=== PATIENT | male | born 1950 | race Caucasian/White ===

== ENCOUNTER → 2021-07-08 | Outpatient (CLI) | payer OTHER ==
[~2021-07-08] MED LIST: CIPR250 PO; PROM25 PO; TAMS.4ER PO
== END ==
LOC: LAB 11:01 → LAB SHORT 11:01
DX: D48.5 Neoplasm of uncertain behavior of skin (principal); D04.30 Carcinoma in situ of skin of unspecified part of face; L82.1 Other seborrheic keratosis
CPT/HCPCS: 88305

== ENCOUNTER → 2021-07-29 | Outpatient (CLI) | payer MEDICARE | LOC: LAB SHORT 14:55 → LAB 14:55 | DX: D04.39 Carcinoma in situ of skin of other parts of face (principal) | CPT/HCPCS: 88305 ==

== ENCOUNTER 2024-06-28 18:07 | Inpatient (IN) | payer MEDICARE ==
[~2024-06-28] VITALS: Ht 180.3 cm; Wt 68.0 kg
[2024-06-28] MEDS ORDERED: NS 1,000 ML IV SCH ×2 (19:00→23:00)
[2024-06-28] MEDS ORDERED: CefTRIAXone Sodium 2,000 MG in NS 100 ML IV ONE (19:05)
[2024-06-28 19:15] LABS: BASOPHILS ABSOLUTE AUTO 0.03 K/mm3 (0.00-0.23); BASOPHILS PERCENT AUTO 0 % (0-2); EOSINOPHILS PERCENT AUTO 0 % (0-6); Hematocrit 43.4 % (37.0-53.0); Hemoglobin 14.8 g/dL (13.5-17.5); IMMATURE GRAN ABSOLUTE AUTO 0.05 K/mm3 (0.00-0.10); IMMATURE GRAN PERCENT AUTO 0 % (0-1); LYMPHOCYTES ABSOLUTE AUTO 0.59 K/mm3 (0.84-5.20); LYMPHOCYTES PERCENT AUTO 5 % (21-46); MONOCYTES ABSOLUTE AUTO 0.99 K/mm3 (0.16-1.47); MONOCYTES PERCENT AUTO 8 % (4-13); Mean Corpuscular HGB 31.1 pg (26.0-34.0); Mean Corpuscular HGB Conc 34.1 g/dL (31.5-36.5); Mean Corpuscular Volume 91 fL (80-100); Mean Platelet Volume 11.4 fL (9.1-12.4); NEUTROPHILS PERCENT AUTO 86 % (41-73); Platelet Count 165 K/mm3 (150-400); RDW Coefficient Variation 13.4 % (11.7-14.2); RDW Standard Deviation 45.3 fL (35.1-46.3); Red Blood Cell Count 4.76 M/mm3 (4.30-5.90); White Blood Cell Count 12.06 K/mm3 (4.00-11.30)
[2024-06-28] MEDS ORDERED: Vancomycin HCL 1,000 MG in NS 250 ML IV ONE (19:25)
[2024-06-28 19:32] LABS: Source, Urine Clean Catch
[2024-06-28 19:37] LABS: Appearance, Urine Hazy (Clear); Bilirubin, Urine Neg (Neg); Blood, Urine 5+ (Neg); Color, Urine Amber (P-Yellow); Glucose Qualitative, Urine Neg (Neg); Ketones, Urine Neg (Neg); Leukocyte Esterase, Urine Neg (Neg); Nitrite, Urine Neg (Neg); Protein, Urine 3+ (Neg); Urobilinogen, Urine NORM (Normal)
[2024-06-28 19:38] LABS: Albumin, Blood 2.9 g/dL (3.4-5.0); Albumin/Globulin Ratio 0.6 (0.8-1.8); Bilirubin, Total 1.1 mg/dL (0.1-1.0); Bun/Creatinine Ratio 25.7 (12.0-20.0); Calcium, Blood 9.6 mg/dL (8.5-10.1); Creatinine, Blood 2.06 mg/dL (0.60-1.20); Globulin, Blood 5.2 g/dL (2.2-4.0); Potassium, Blood 4.4 mmol/L (3.5-5.5); Total Protein, Blood 8.1 g/dL (6.4-8.2)
[2024-06-28 19:43] LABS: Ethanol (Alcohol), Blood, Med <3 mg/dL; Free Thyroxine 0.93 ng/dL (0.70-1.60); Magnesium, Blood 2.7 mg/dL (1.6-2.4); Phosphorus, Blood 2.4 mg/dL (2.5-4.9)
[2024-06-28 19:57] LABS: Bacteria Many /hpf; Squamous Epithelial Cells Few /hpf (Few)
[2024-06-28 20:02] LABS: U Amphetamine Screen Not Detected; U Barbituate Screen Not Detected; U Benzodiazapine Screen Not Detected; U Buprenorphine Screen Not Detected; U Cannabinoids Screen Not Detected; U Cocaine Screen Not Detected; U Methadone Screen Not Detected; U Methamphetamine Screen Not Detected; U Opiates Screen Not Detected; U Oxycodone Screen Not Detected; U Phencyclidine Screen Not Detected
[2024-06-28 20:07] LABS: Influenza A, PCR NEGATIVE (NEGATIVE); Influenza B, PCR NEGATIVE (NEGATIVE); Resp Syncytial Virus, PCR NEGATIVE (NEGATIVE); SARS-Cov-2 (COVID-19) PCR, MMC NEGATIVE (NEGATIVE)
[2024-06-28] MEDS ORDERED: Acetaminophen 650 MG Supp PR ONE (20:10)
[2024-06-28 20:59] LABS: Appearance, CSF Clear (Clear); Color, CSF No Color (No Color); WBC Count, CSF 1 /mm3 (0-5)
[2024-06-28 21:00] LABS: RBC Count, CSF 101 /mm3 (0-0)
[2024-06-28 21:13] LABS: Glucose, CSF 88 mg/dL (40-70)
[2024-06-28] MEDS ORDERED: Acetaminophen 325 MG TABLET PO PRN (22:15)
[2024-06-28] MEDS ORDERED: Acetaminophen 650 MG Supp PR PRN (22:15)
[2024-06-28] MEDS ORDERED: MIRT15 PO (22:47)
[2024-06-28] MEDS ORDERED: MEMANTINE HCL PO (22:47)
[2024-06-28] MEDS ORDERED: DONEPEZIL HCL10 MG PO (22:48)
[2024-06-28] MEDS ORDERED: Azithromycin 500 MG in NS 250 ML IV SCH (22:48)
[2024-06-28] MEDS ORDERED: Lactobacil 2-S.Thermo-Bifido 1 1 Cap PO SCH (23:00)
[2024-06-28 23:06] LABS: Cryptococcus Neoformans/Gattii Not Detected (NOT DETECT); Enterovirus Not Detected (NOT DETECT); Escherichia Coli K1 Not Detected (NOT DETECT); Haemophilus Influenza Not Detected (NOT DETECT); Herpes Simplex Virus 1 Not Detected (NOT DETECT); Herpes Simplex Virus 2 Not Detected (NOT DETECT); Human Herpesvirus 6 Not Detected (NOT DETECT); Human Parechovirus Not Detected (NOT DETECT); Listeria Monocytogenes Not Detected (NOT DETECT); Neisseria Meningitidis Not Detected (NOT DETECT); Streptococcus Agalactiae Not Detected (NOT DETECT); Streptococcus Pneumoniae Not Detected (NOT DETECT); Varicella Zoster Virus Not Detected (NOT DETECT)
[2024-06-28 23:38] VITALS: BP 122/65
[2024-06-29] MEDS ORDERED: NS 1,000 ML IV SCH (01:00)
--- NOTE | 2024-06-29 01:30 | NUR ---
HIGH SENSITIVITY TROPONIN CRITICAL RESULT OF 146AT 0130 ON 06/29/24. MD TAVERA NOTIFIED. TROPONIN IN THE ED WAS 136. DR TAVERA PLACED ORDER FOR TELEMETRY MONITORING. NO SIGNS OF DISTRESS FROM PATIENT.
[2024-06-29 02:53] VITALS: BP 147/67
[2024-06-29 05:12] LABS: BASOPHILS ABSOLUTE AUTO 0.04 K/mm3 (0.00-0.23); BASOPHILS PERCENT AUTO 0 % (0-2); EOSINOPHILS PERCENT AUTO 0 % (0-6); Hematocrit 40.9 % (37.0-53.0); Hemoglobin 13.5 g/dL (13.5-17.5); IMMATURE GRAN ABSOLUTE AUTO 0.06 K/mm3 (0.00-0.10); IMMATURE GRAN PERCENT AUTO 1 % (0-1); LYMPHOCYTES ABSOLUTE AUTO 0.54 K/mm3 (0.84-5.20); LYMPHOCYTES PERCENT AUTO 5 % (21-46); MONOCYTES ABSOLUTE AUTO 0.78 K/mm3 (0.16-1.47); MONOCYTES PERCENT AUTO 8 % (4-13); Mean Corpuscular HGB 30.9 pg (26.0-34.0); Mean Corpuscular Volume 94 fL (80-100); Mean Platelet Volume 11.4 fL (9.1-12.4); NEUTROPHILS ABSOLUTE AUTO 8.83 K/mm3 (1.96-9.15); NEUTROPHILS PERCENT AUTO 86 % (41-73); Platelet Count 135 K/mm3 (150-400); RDW Coefficient Variation 13.8 % (11.7-14.2); RDW Standard Deviation 47.3 fL (35.1-46.3); Red Blood Cell Count 4.37 M/mm3 (4.30-5.90); White Blood Cell Count 10.25 K/mm3 (4.00-11.30)
[2024-06-29 05:31] LABS: Albumin, Blood 2.5 g/dL (3.4-5.0); Albumin/Globulin Ratio 0.5 (0.8-1.8); Bilirubin, Total 0.8 mg/dL (0.1-1.0); Bun/Creatinine Ratio 29.5 (12.0-20.0); Calcium, Blood 8.6 mg/dL (8.5-10.1); Creatinine, Blood 1.76 mg/dL (0.60-1.20); Globulin, Blood 4.7 g/dL (2.2-4.0); Potassium, Blood 3.9 mmol/L (3.5-5.5); Total Protein, Blood 7.2 g/dL (6.4-8.2)
[2024-06-29 07:08] VITALS: BP 118/73
[2024-06-29] MEDS ORDERED: Tamsulosin HCl 0.4 MG Cap PO SCH (09:00)
[2024-06-29] MEDS ORDERED: Memantine HCL 5 MG Tab PO SCH (09:00)
[2024-06-29] MEDS ORDERED: Enoxaparin 40 MG/0.4 ML SYR SC SCH (09:00)
--- NOTE | 2024-06-29 10:32 | NUR ---
CALLED DR RAY, NOTIFEID OF PT'S LABS INCLUDING NA 153, CL 121 AND GFR/CR. INFORMED HIM THAT RN STOPPED IVF AT 0700, STATES HE WILL EVAL PT AND WRITE SOME NEW ORDERS
[2024-06-29] MEDS ORDERED: D5W-1/2NS KCl 10mEq 1,000 ML IV SCH (11:45)
[2024-06-29 14:48] VITALS: BP 142/80
[2024-06-29 16:19] LABS: BASOPHILS ABSOLUTE AUTO 0.03 K/mm3 (0.00-0.23); BASOPHILS PERCENT AUTO 0 % (0-2); EOSINOPHILS PERCENT AUTO 0 % (0-6); Hematocrit 40.1 % (37.0-53.0); Hemoglobin 13.4 g/dL (13.5-17.5); IMMATURE GRAN ABSOLUTE AUTO 0.04 K/mm3 (0.00-0.10); IMMATURE GRAN PERCENT AUTO 1 % (0-1); LYMPHOCYTES ABSOLUTE AUTO 0.56 K/mm3 (0.84-5.20); LYMPHOCYTES PERCENT AUTO 7 % (21-46); MONOCYTES ABSOLUTE AUTO 0.56 K/mm3 (0.16-1.47); MONOCYTES PERCENT AUTO 7 % (4-13); Mean Corpuscular HGB 31.4 pg (26.0-34.0); Mean Corpuscular HGB Conc 33.4 g/dL (31.5-36.5); Mean Corpuscular Volume 94 fL (80-100); Mean Platelet Volume 11.1 fL (9.1-12.4); NEUTROPHILS ABSOLUTE AUTO 7.38 K/mm3 (1.96-9.15); NEUTROPHILS PERCENT AUTO 86 % (41-73); Platelet Count 144 K/mm3 (150-400); Red Blood Cell Count 4.27 M/mm3 (4.30-5.90); White Blood Cell Count 8.57 K/mm3 (4.00-11.30)
[2024-06-29 17:04] LABS: Bun/Creatinine Ratio 30.2 (12.0-20.0); Calcium, Blood 8.8 mg/dL (8.5-10.1); Creatinine, Blood 1.59 mg/dL (0.60-1.20); Potassium, Blood 3.7 mmol/L (3.5-5.5)
[2024-06-29 19:36] VITALS: BP 137/72
--- NOTE | 2024-06-29 20:50 | NUR ---
SUMMARY- PT A/O TO SELF. BEDREST CURRENTLY, TURNED Q2, INCONT CARE. PT VERY CONFUSED. FIDGITY AND JUMPY, SPEEKS NONSENSICAL MOST OF THE TIME. WAS ABLE TO SAY HIS NAME. RECOGNIZED HIS FAMILY WHEN THEY WERE IN TO VISIT. SPEECH WILL RUDY EVAL UNTIL TOMORROW WHEN PT HOPEFULLY BETTER ABLE TO FOLLOW DIRECTION. CHANGED IVF AFTER LABS RECEIVED WITH ELEVATED NA/CL. PT ON ROOM AIR. TELE NSR. REPORTED TO BREONNA GARDNER YANG
[2024-06-29] MEDS ORDERED: CefTRIAXone Sodium 2,000 MG in NS 100 ML IV SCH (21:00)
[2024-06-29] MEDS ORDERED: Mirtazapine 15 MG SoluTab PO SCH (21:00)
[2024-06-29] MEDS ORDERED: Donepezil HCl 5 MG Tab PO SCH (21:00)
[2024-06-29] MEDS ORDERED: CefTRIAXone Sodium 1,000 MG in NS 100 ML IV SCH (21:00)
[2024-06-30 02:50] VITALS: BP 122/85
[2024-06-30 05:30] LABS: BASOPHILS ABSOLUTE AUTO 0.02 K/mm3 (0.00-0.23); BASOPHILS PERCENT AUTO 0 % (0-2); EOSINOPHILS PERCENT AUTO 0 % (0-6); Hematocrit 42.5 % (37.0-53.0); Hemoglobin 14.1 g/dL (13.5-17.5); IMMATURE GRAN ABSOLUTE AUTO 0.06 K/mm3 (0.00-0.10); IMMATURE GRAN PERCENT AUTO 1 % (0-1); LYMPHOCYTES PERCENT AUTO 8 % (21-46); MONOCYTES ABSOLUTE AUTO 0.58 K/mm3 (0.16-1.47); MONOCYTES PERCENT AUTO 8 % (4-13); Mean Corpuscular HGB 31.3 pg (26.0-34.0); Mean Corpuscular HGB Conc 33.2 g/dL (31.5-36.5); Mean Corpuscular Volume 94 fL (80-100); Mean Platelet Volume 11.5 fL (9.1-12.4); NEUTROPHILS ABSOLUTE AUTO 6.41 K/mm3 (1.96-9.15); NEUTROPHILS PERCENT AUTO 84 % (41-73); Platelet Count 152 K/mm3 (150-400); RDW Standard Deviation 48.8 fL (35.1-46.3); White Blood Cell Count 7.67 K/mm3 (4.00-11.30)
[2024-06-30 06:05] LABS: Albumin, Blood 2.3 g/dL (3.4-5.0); Albumin/Globulin Ratio 0.5 (0.8-1.8); Bilirubin, Total 0.7 mg/dL (0.1-1.0); Bun/Creatinine Ratio 26.6 (12.0-20.0); Calcium, Blood 9.4 mg/dL (8.5-10.1); Creatinine, Blood 1.58 mg/dL (0.60-1.20); Globulin, Blood 4.9 g/dL (2.2-4.0); Potassium, Blood 3.8 mmol/L (3.5-5.5); Total Protein, Blood 7.2 g/dL (6.4-8.2)
[2024-06-30] MEDS ORDERED: D5W-1/2NS KCl 10mEq 1,000 ML IV SCH (06:35)
[2024-06-30 07:01] VITALS: BP 133/85
[2024-06-30] MEDS ORDERED: LevoFLOXacin 500MG/D5W 100ML 100 ML IV SCH (14:00)
[2024-06-30 14:40] VITALS: BP 127/65
--- NOTE | 2024-06-30 16:41 | NUR ---
SHIFT SUMMARY: PT AOX1 AND TREMORS AT REST. PLEASANT MOOD AND NONIMPUSLIVE, VSS. ACCORDING TO FAMILY, PT CURRENT MENTAL STATUS IS FAR FROM BASELINE AND CONCERNING. DR CHANGED ANTIBIOTICS AND CONTINUING FLUIDS. BEDDING CHANGED AND PT ATE WHOLE BREAKFAST AND LUNCH PER NUCLEAR WEAPONS MECHANICAL SPECIALIST. PLAN DISCUSSED WITH AND FAMILY. BED IN LOWEST POSITION, 3 BEDRAILS UP, AND CALL LIGHT IN REACH. CONTINUING CARE.
--- NOTE | 2024-06-30 17:56 | NUR ---
THIS REPAIRER KILN CAR HAS REVIEWED AND AGREES WITH ALL NOTES AND ASSESSMENTS.
--- NOTE | 2024-06-30 18:27 | NUR ---
STRAIGHT CATH ATTEMPTED AND WAS NOT SUCCESSFUL. PT TOLERATED WELL PROSTATE FEELS VERY LARGE. UA NOT COLLECTED.
[2024-06-30 19:47] VITALS: BP 150/74
[2024-06-30] MEDS ORDERED: Dextrose 5% 1,000 ML IV SCH (22:00)
[2024-06-30] MEDS ORDERED: Potassium Phosphate Dibasic 20 MM IV SCH (22:00)
[2024-06-30] MEDS ORDERED: Potassium Phosphate Dibasic 20 MM in Dextrose 5% 500 ML IV STA (22:06)
[2024-07-01] MEDS ORDERED: [UNRECOGNIZED DRUG - MIXTURE] IV SCH ×2 (02:30→07:50)
[2024-07-01 02:55] VITALS: BP 132/75
[2024-07-01 07:17] LABS: BASOPHILS ABSOLUTE AUTO 0.01 K/mm3 (0.00-0.23); BASOPHILS PERCENT AUTO 0 % (0-2); EOSINOPHILS ABSOLUTE AUTO 0.02 K/mm3 (0.00-0.68); EOSINOPHILS PERCENT AUTO 0 % (0-6); Hematocrit 39.2 % (37.0-53.0); IMMATURE GRAN ABSOLUTE AUTO 0.04 K/mm3 (0.00-0.10); IMMATURE GRAN PERCENT AUTO 1 % (0-1); LYMPHOCYTES PERCENT AUTO 12 % (21-46); MONOCYTES ABSOLUTE AUTO 0.55 K/mm3 (0.16-1.47); MONOCYTES PERCENT AUTO 8 % (4-13); Mean Corpuscular HGB 31.5 pg (26.0-34.0); Mean Corpuscular HGB Conc 33.2 g/dL (31.5-36.5); Mean Corpuscular Volume 95 fL (80-100); Mean Platelet Volume 11.8 fL (9.1-12.4); NEUTROPHILS ABSOLUTE AUTO 5.29 K/mm3 (1.96-9.15); NEUTROPHILS PERCENT AUTO 79 % (41-73); Platelet Count 152 K/mm3 (150-400); RDW Coefficient Variation 14.3 % (11.7-14.2); RDW Standard Deviation 50.1 fL (35.1-46.3); Red Blood Cell Count 4.13 M/mm3 (4.30-5.90); White Blood Cell Count 6.71 K/mm3 (4.00-11.30)
[2024-07-01 07:27] LABS: Albumin, Blood 1.9 g/dL (3.4-5.0); Albumin/Globulin Ratio 0.4 (0.8-1.8); Bilirubin, Total 0.7 mg/dL (0.1-1.0); Bun/Creatinine Ratio 20.4 (12.0-20.0); Calcium, Blood 8.9 mg/dL (8.5-10.1); Creatinine, Blood 1.57 mg/dL (0.60-1.20); Globulin, Blood 4.6 g/dL (2.2-4.0); Potassium, Blood 3.7 mmol/L (3.5-5.5); Total Protein, Blood 6.5 g/dL (6.4-8.2)
[2024-07-01 07:31] VITALS: BP 139/76
[2024-07-01] MEDS ORDERED: D5W-1/2NS KCl 10mEq 1,000 ML IV SCH (10:05)
[2024-07-01 15:24] LABS: Bun/Creatinine Ratio 21.2 (12.0-20.0); Calcium, Blood 8.5 mg/dL (8.5-10.1); Creatinine, Blood 1.6 mg/dL (0.60-1.20); Potassium, Blood 3.9 mmol/L (3.5-5.5)
[2024-07-01 16:01] VITALS: BP 98/66
--- NOTE | 2024-07-01 18:39 | NUR ---
SHIFT SUMMARY: PT AOX1-0 WAS ABLE TO GIVE US HIS NAME DURING MORNING MEDS. MALE PUREWICK ATTACHED TO CATCH URINE SAMPLE AND LEFT ON. DRY AND INTACT OF NOTE. D5W FINISHED AND POTASIUM HUNG UP @150ML/HR PER ORDER. FAMILY VISITING REGULARLY, PT WAKING UP INTERMITTENTLY. TELE DISCONTINUED. PT AT BEDSIDE HELPING FEED. BED IN LOWEST POSITION, BEDRAILS UP, AND CALL LIGHT IN REACH. CONTINUING CARE.
--- NOTE | 2024-07-01 19:04 | NUR ---
THIS AFFIRMATIVE ACTION SPECIALIST HAS REVIEWED AND AGREES WITH ALL NOTES AND ASSESSMENTS BY KENDRA ROTHMAN.
[2024-07-01 20:13] VITALS: BP 132/64
[2024-07-01 21:57] LABS: Bun/Creatinine Ratio 22.4 (12.0-20.0); Calcium, Blood 8.6 mg/dL (8.5-10.1); Creatinine, Blood 1.56 mg/dL (0.60-1.20)
[2024-07-02 03:05] VITALS: BP 145/81
[2024-07-02 03:17] LABS: BASOPHILS ABSOLUTE AUTO 0.01 K/mm3 (0.00-0.23); BASOPHILS PERCENT AUTO 0 % (0-2); EOSINOPHILS ABSOLUTE AUTO 0.07 K/mm3 (0.00-0.68); EOSINOPHILS PERCENT AUTO 1 % (0-6); Hematocrit 38.5 % (37.0-53.0); Hemoglobin 12.7 g/dL (13.5-17.5); IMMATURE GRAN ABSOLUTE AUTO 0.03 K/mm3 (0.00-0.10); IMMATURE GRAN PERCENT AUTO 1 % (0-1); LYMPHOCYTES PERCENT AUTO 15 % (21-46); MONOCYTES ABSOLUTE AUTO 0.51 K/mm3 (0.16-1.47); MONOCYTES PERCENT AUTO 8 % (4-13); Mean Corpuscular HGB 31.4 pg (26.0-34.0); Mean Corpuscular Volume 95 fL (80-100); Mean Platelet Volume 11.1 fL (9.1-12.4); NEUTROPHILS ABSOLUTE AUTO 4.99 K/mm3 (1.96-9.15); NEUTROPHILS PERCENT AUTO 75 % (41-73); Platelet Count 147 K/mm3 (150-400); RDW Coefficient Variation 14.4 % (11.7-14.2); RDW Standard Deviation 50.6 fL (35.1-46.3); Red Blood Cell Count 4.05 M/mm3 (4.30-5.90); White Blood Cell Count 6.61 K/mm3 (4.00-11.30)
[2024-07-02 03:39] LABS: Albumin, Blood 1.8 g/dL (3.4-5.0); Albumin/Globulin Ratio 0.4 (0.8-1.8); Bilirubin, Total 0.5 mg/dL (0.1-1.0); Bun/Creatinine Ratio 21.4 (12.0-20.0); Creatinine, Blood 1.54 mg/dL (0.60-1.20); Globulin, Blood 4.5 g/dL (2.2-4.0); Potassium, Blood 3.9 mmol/L (3.5-5.5); Total Protein, Blood 6.3 g/dL (6.4-8.2)
[2024-07-02 07:39] VITALS: BP 147/80
[2024-07-02 15:19] VITALS: BP 119/63
--- NOTE | 2024-07-02 16:05 | NUR ---
VSS except for high Temp of 100.9, notifed, tylenol given per order, Confused only oriented to self, shows no signs of pain, shows no signs of SOB, ambulates with 2x assist and walker, on RA. Lungs diminished, heart regular, bowel sounds normative, 1-1 feed on purred diet, spoons of water, incontient of urine. Pt cannot make needs known, call dockery in hand, bed in lowest position.
[2024-07-02] MEDS ORDERED: Dextrose 5% 1,000 ML IV SCH ×2 (17:05→23:20)
[2024-07-02 17:43] LABS: Albumin, Blood 1.5 g/dL (3.4-5.0); Anion Gap 9 mmol/L (3-11); Blood Urea Nitrogen 31 mg/dL (8-24); Bun/Creatinine Ratio 22.3 (12.0-20.0); CO2, Blood 22 mmol/L (21-32); Calcium, Blood 8.3 mg/dL (8.5-10.1); Chloride, Blood 126 mmol/L (98-108); Creatinine, Blood 1.39 mg/dL (0.60-1.20); Glomerular Filtration Rate 53 (60-); Glucose, Blood 151 mg/dL (70-99); Phosphorus, Blood 2.7 mg/dL (2.5-4.9); Potassium, Blood 3.9 mmol/L (3.5-5.5); Sodium, Blood 153 mmol/L (136-145)
[2024-07-02 19:40] VITALS: BP 120/57
[2024-07-03] MEDS ORDERED: Dextrose 5% 1,000 ML IV SCH (02:15)
[2024-07-03 03:35] VITALS: BP 149/80
[2024-07-03 05:08] LABS: Hematocrit 36.1 % (37.0-53.0); Hemoglobin 11.8 g/dL (13.5-17.5)
[2024-07-03 05:35] LABS: Albumin, Blood 1.6 g/dL (3.4-5.0); Anion Gap 12 mmol/L (3-11); Blood Urea Nitrogen 28 mg/dL (8-24); Bun/Creatinine Ratio 23.1 (12.0-20.0); CO2, Blood 21 mmol/L (21-32); Calcium, Blood 8.4 mg/dL (8.5-10.1); Chloride, Blood 122 mmol/L (98-108); Creatinine, Blood 1.21 mg/dL (0.60-1.20); Glomerular Filtration Rate 63 (60-); Glucose, Blood 142 mg/dL (70-99); Magnesium, Blood 1.9 mg/dL (1.6-2.4); Phosphorus, Blood 2.3 mg/dL (2.5-4.9); Potassium, Blood 3.6 mmol/L (3.5-5.5); Sodium, Blood 151 mmol/L (136-145)
[2024-07-03] MEDS ORDERED: Potassium Phosphate Dibasic 10 MM in Dextrose 5% 250 ML IV ONE (06:15)
[2024-07-03 07:47] VITALS: BP 142/84
[2024-07-03] MEDS ORDERED: Diazepam 5 MG Tab PO PRN (14:40)
[2024-07-03 15:20] VITALS: BP 123/61
--- NOTE | 2024-07-03 19:19 | NUR ---
PATIENT TRANSPORTED TO IMAGING FOR MRI. PATIENT TRANSFERED TO [facility] FROM HOSPITAL BED WITH SLIDER SHEET AND 2P ASSIST.
--- NOTE | 2024-07-03 19:51 | NUR ---
PATIENT RETURNS TO ROOM VIA GURNEY AND 1P ASSIST FROM IMAGING. PATIENT TRANSFERED FROM [facility] TO HOSPITAL BED WITH SLIDER SHEET AND 3P ASSIST. PER REPORT IT WAS DIFFICULT TO OBTAIN IMAGING DURING MRI D/T PATIENT MOVING. PATIENT POSITIONED IN BED, NEEDS ADDRESSED, PATIENT LEFT IN A SAFE POSITION WITH CALL LIGHT IN REACH.
--- NOTE | 2024-07-03 20:04 | NUR ---
SHIFT SUMMARY: PT ORIENTED TO NONE THIS AM. PT UNABLE TO EVEN STATE NAME AND/OR . PT BECAME MORE CLEAR THE DAY PROGRESSED. PT ABLE TO HOLD UTENSILS AND FEED SELF PRIOR TO END OF SHIFT. SPOKE WITH DR. QUILES SEVERAL TIMES THIS SHIFT PROVIDING UPDATES ON SODIUM LEVELS. REPEAT NA TO BE COMPLETED @ [address] QUILES BY 2200. NA PRIOR TO SHIFT CHANGE OF 144. DEXTROSE INFUSING @ 150/HR. ELASTIC ATTACHER ZIGZAG ARRIVED AT END OF SHIFT FOR PT SCAN. PT/OT WORKING WITH PT AND ABLE TO GET PT IN CHAIR WITH ONE PERSON ASSIST. CALL LIGHT IN REACH. BED IN LOWEST POSITION.
[2024-07-03 20:57] VITALS: BP 129/82
[2024-07-04 04:12] VITALS: BP 121/66
[2024-07-04 05:17] LABS: Hematocrit 36.1 % (37.0-53.0); Hemoglobin 11.6 g/dL (13.5-17.5)
[2024-07-04 05:33] LABS: Albumin, Blood 1.6 g/dL (3.4-5.0); Anion Gap 12 mmol/L (3-11); Blood Urea Nitrogen 26 mg/dL (8-24); Bun/Creatinine Ratio 23.6 (12.0-20.0); CO2, Blood 22 mmol/L (21-32); Calcium, Blood 7.8 mg/dL (8.5-10.1); Chloride, Blood 113 mmol/L (98-108); Glomerular Filtration Rate 70 (60-); Glucose, Blood 125 mg/dL (70-99); Magnesium, Blood 1.7 mg/dL (1.6-2.4); Potassium, Blood 3.5 mmol/L (3.5-5.5); Sodium, Blood 143 mmol/L (136-145)
--- NOTE | 2024-07-04 05:55 | NUR ---
SHIFT SUMMARY. PATIENT IS ALERT TO SELF. PATIENTS SPEECH IS MUMBLED AND PATIENT APPEARS TO HAVE WORD SALAD AT TIME. PATIENT OUT TO MRI THIS SHIFT. PATIENT ACTIVE THIS SHIFT MOVING IN BED, FIDGETING WITH BLANKETS, ATTENDS, AND GOWN. PATIENT SLEPT OFF AND ON T/O SHIFT. PATIENT INFUSING DEXTROSE AT 150MLS/HR. SPOKE WITH DR. QUILES X3 THIS SHIFT INFORMING OF SODIUM UPDATES AND LAB RESULTS THIS AM-PATIENT TO HAVE A ONE TIME DOSE OF K-PHOS IV-SEE ORDERS. DR. QUILES ORDERED FOR A STAT SODIUM AT 1000 AND TO CALL WITH RESULTS PRIOR TO 1100. PATIENTS BED IS LOCKED IN THE LOWEST POSITION WITH BED ALARM ENGAGED FOR PATIENT SAFETY. CALL LIGHT IN REACH.
[2024-07-04] MEDS ORDERED: Potassium Phosphate Dibasic 20 MM in Dextrose 5% 500 ML IV ONE (06:15)
[2024-07-04 07:27] VITALS: BP 145/65
[2024-07-04 16:01] VITALS: BP 104/48
--- NOTE | 2024-07-04 17:56 | NUR ---
PT A&OX1 SELF ONLY, CAN FOLLOW BASIC COMMANDS. INCONTINENT, ATTEND AND BRIEF IN PLACE WITH GOOD URINE OUTPUT. VSS, EXCEPT FOR TMAX OF 102.3 MD NOTIFIED, TYLENOL GIVEN FOLLOW UP TEMP 100.9. PT ABLE TO WALK WITH PT AND SIT UP IN CHAIR FOR LUNCH. WORKED WITH SPEECH AND DIET ADVANCED TO REGULAR DIET, TOLERATED WELL WITH FEEDING. DEXTROSE 5% RUNNING CONTINUOUSLY AT 150ML/HR, SODIUM AT 1014- 139. CALL LIGHT IN REACH, BED ALARM ENGAGED, AND BED LOCKED IN LOWEST POSITION, IN ROOM MOST OF THE DAY ASSISTS WITH ADLS SUPPORTIVE OF CARE.
[2024-07-04 19:02] VITALS: BP 119/55
[2024-07-04 20:05] LABS: Albumin, Blood 1.6 g/dL (3.4-5.0); Anion Gap 10 mmol/L (3-11); Blood Urea Nitrogen 27 mg/dL (8-24); Bun/Creatinine Ratio 20.9 (12.0-20.0); CO2, Blood 25 mmol/L (21-32); Chloride, Blood 109 mmol/L (98-108); Creatinine, Blood 1.29 mg/dL (0.60-1.20); Glomerular Filtration Rate 58 (60-); Glucose, Blood 133 mg/dL (70-99); Phosphorus, Blood 2.6 mg/dL (2.5-4.9); Potassium, Blood 3.5 mmol/L (3.5-5.5); Sodium, Blood 140 mmol/L (136-145)
--- NOTE | 2024-07-04 20:15 | NUR ---
DR. QUILES CALLED INTO HOSPITAL IN REGARDS TO PATIENT. DR. QUILES ADDED K-PHOS, STRICT I&O'S, DEXTROSE INFUSION, AND URINE OSMO. IN THE MORNING-SEE ORDERS.
[2024-07-04] MEDS ORDERED: Potassium Phosphate Dibasic 10 MM in Dextrose 5% 250 ML IV ONE (20:20)
[2024-07-04] MEDS ORDERED: Dextrose 5% 1,000 ML IV SCH (20:25)
--- NOTE | 2024-07-05 00:20 | NUR ---
PATIENT IS STRICT I&O'S-CONDOM CATHETER PLACED TO GET ACCURATE OUTPUT-PATIENT PULLED OFF X2. PATIENT FIDGETING AND TRYING TO GET OUT OF BED X3 AT THIS TIME. PATIENT IS PLEASANT AND CONFUSED. PATIENT PROVIDED WITH A FIDGET APRON.
[2024-07-05 02:07] VITALS: BP 142/62
--- NOTE | 2024-07-05 03:45 | NUR ---
SHIFT SUMMARY: PT ALERT WITH INCREASED CONFUSION. HES BEEN ANXIOUS AND IRRITABLE THIS SHIFT WITH ATTEMPTS OF TRYING TO GET OUT OF BED. WE ATTEMPTED TO PUT A CONDOM CATH ON HIM BUT HE KEPT REMOVING IT. LUNG SOUNDS AT START OF SHIFT WERE CLEAR BUT HE HAS CRACKLES AT THIS TIME. tEMP AT 0215 WAS 101.7. TYLENOL WAS GIVEN AND TEMP WENT DOWN TO 98.9. REMAINS ON STRICT I&O. CONTINUES ON D5 AT 125. CONTINUES WITH A NONPRODUCTIVE COUGH. PT RESTING AT THIS TIME WITH CALL LIGHT IN PLACE BED ALARM ON AND SIDERAILS UP.
[2024-07-05 04:16] LABS: BASOPHILS ABSOLUTE AUTO 0.01 K/mm3 (0.00-0.23); BASOPHILS PERCENT AUTO 0 % (0-2); EOSINOPHILS ABSOLUTE AUTO 0.03 K/mm3 (0.00-0.68); EOSINOPHILS PERCENT AUTO 0 % (0-6); Hematocrit 33.4 % (37.0-53.0); Hemoglobin 10.9 g/dL (13.5-17.5); IMMATURE GRAN ABSOLUTE AUTO 0.11 K/mm3 (0.00-0.10); IMMATURE GRAN PERCENT AUTO 1 % (0-1); LYMPHOCYTES ABSOLUTE AUTO 0.84 K/mm3 (0.84-5.20); LYMPHOCYTES PERCENT AUTO 11 % (21-46); MONOCYTES PERCENT AUTO 5 % (4-13); Mean Corpuscular HGB 30.4 pg (26.0-34.0); Mean Corpuscular HGB Conc 32.6 g/dL (31.5-36.5); Mean Corpuscular Volume 93 fL (80-100); Mean Platelet Volume 11.4 fL (9.1-12.4); NEUTROPHILS ABSOLUTE AUTO 6.58 K/mm3 (1.96-9.15); NEUTROPHILS PERCENT AUTO 83 % (41-73); Platelet Count 182 K/mm3 (150-400); RDW Coefficient Variation 13.2 % (11.7-14.2); RDW Standard Deviation 45.5 fL (35.1-46.3); Red Blood Cell Count 3.58 M/mm3 (4.30-5.90); White Blood Cell Count 7.97 K/mm3 (4.00-11.30)
[2024-07-05 04:43] LABS: Albumin, Blood 1.5 g/dL (3.4-5.0); Anion Gap 11 mmol/L (3-11); Blood Urea Nitrogen 28 mg/dL (8-24); Bun/Creatinine Ratio 24.6 (12.0-20.0); CO2, Blood 22 mmol/L (21-32); Calcium, Blood 7.9 mg/dL (8.5-10.1); Chloride, Blood 110 mmol/L (98-108); Creatinine, Blood 1.14 mg/dL (0.60-1.20); Glomerular Filtration Rate 67 (60-); Glucose, Blood 139 mg/dL (70-99); Phosphorus, Blood 2.6 mg/dL (2.5-4.9); Potassium, Blood 3.3 mmol/L (3.5-5.5); Sodium, Blood 140 mmol/L (136-145)
[2024-07-05 04:45] LABS: Source, Urine Condom Cath
--- NOTE | 2024-07-05 04:52 | NUR ---
PT WITH INCREASED CONFUSION AND FEVER. NOTICED ON DRS PROGRESS NOTE YESTERDAY THAT HE WANTED URINE STUDIES. CALLED DR. SHARIF AND INFORMED HIM AND HE GAVE A ORDER TO OBTAIN A UA. UA WAS OBTAINED AND SENT TO THE LAB.
[2024-07-05 05:04] LABS: Appearance, Urine Clear (Clear); Bilirubin, Urine Neg (Neg); Blood, Urine 4+ (Neg); Color, Urine Yellow (P-Yellow); Glucose Qualitative, Urine Neg (Neg); Ketones, Urine Neg (Neg); Leukocyte Esterase, Urine Neg (Neg); Nitrite, Urine Neg (Neg); Protein, Urine 2+ (Neg); Specific Gravity, Urine 1.015 (1.003-1.022); Urobilinogen, Urine NORM (Normal)
[2024-07-05 05:19] LABS: Amorphous Light (0-Heavy); Bacteria Few /hpf; Granular Casts 0-2 /lpf (0); Red Blood Cells, Urine 0-2 /hpf (0-2); Squamous Epithelial Cells Few /hpf (Few); White Blood Cells, Urine 0-2 /hpf (0-5)
[2024-07-05] MEDS ORDERED: Dextrose 5% 1,000 ML IV SCH (05:25)
[2024-07-05] MEDS ORDERED: Potassium Chloride 10 Meq Tablet SA PO ONE (05:25)
[2024-07-05] MEDS ORDERED: Potassium Phosphate Dibasic 10 MM in Dextrose 5% 250 ML IV ONE (06:00)
[2024-07-05 07:26] VITALS: BP 140/70
[2024-07-05] MEDS ORDERED: Piperacillin/Tazobactam Sod 3.375 GM in NS 100 ML IV SCH (12:00)
[2024-07-05] MEDS ORDERED: NS 250 ML IV PRN (12:20)
[2024-07-05 16:09] VITALS: BP 123/56
[2024-07-05 19:24] VITALS: BP 127/68
[2024-07-05 22:52] LABS: Potassium, Blood 3.5 mmol/L (3.5-5.5)
--- NOTE | 2024-07-05 23:42 | NUR ---
NEW T-ORDER FROM DR QUILES ENTERED TO [employer], SEE EMAR: CHANGE D5 INFUSION TO 50MLS/HR. NO ADDITIONAL NEW ORDERS AT THIS TIME.
--- NOTE | 2024-07-06 03:44 | NUR ---
SHIFT SUMMARY PT IS A&O X2-3, WORDSALAD. @HS BY THE BEDSIDE, PROVIDING VALUABLE INFORMATION ABOUT PT'S PREVIOUS BASELINE AND ADL'S. IV DOSE ADJUSTED AFTER STAT Na AND K+ LABS COMPLETED, INFUSING ORDERED D5@50MLS/HR PER 'S T-ORDER (SEE PREVIOUS NOTE.) IV ABX INFUSED ORDERED. MEDICATIONS CRUSHED WITH APPLESAUCE/PUDDING. PT SWALLOWING WELL WITH PUDDING. PT INCONTINENT OF URINE, CONDOM CATH IN PLACE, AND INCONTINENT OF BM X1 DURING THIS SHIFT. PT DENIES PAIN AND DISCOMFORT (FACE SCALE 0). NO ACUTE CHANGES/EVENTS/DISTRESS NOTED/REPORTED DURING THIS SHIFT. BED AT THE LOWEST POSITION, CALL LIGHT W/I REACH, FREQUENT CHECKS BY THE BEDSIDE. BED ALARM FOR SAFETY. PT HAS BEEN RESTING WELL T/O THE NIGHT HRS.
[2024-07-06 04:18] VITALS: BP 131/60
[2024-07-06 05:41] LABS: Hemoglobin 11.1 g/dL (13.5-17.5)
[2024-07-06 06:17] LABS: Albumin, Blood 1.5 g/dL (3.4-5.0); Anion Gap 9 mmol/L (3-11); Blood Urea Nitrogen 26 mg/dL (8-24); CO2, Blood 23 mmol/L (21-32); Chloride, Blood 109 mmol/L (98-108); Creatinine, Blood 1.24 mg/dL (0.60-1.20); Glomerular Filtration Rate 61 (60-); Glucose, Blood 111 mg/dL (70-99); Magnesium, Blood 2.1 mg/dL (1.6-2.4); Phosphorus, Blood 2.3 mg/dL (2.5-4.9); Potassium, Blood 3.4 mmol/L (3.5-5.5); Sodium, Blood 138 mmol/L (136-145)
[2024-07-06] MEDS ORDERED: Potassium Phosphate Dibasic 20 MM in Dextrose 5% 500 ML IV STA (06:44)
[2024-07-06 07:04] VITALS: BP 132/73
[2024-07-06 12:48] LABS: Phosphorus, Blood 3.2 mg/dL (2.5-4.9); Potassium, Blood 3.6 mmol/L (3.5-5.5)
--- NOTE | 2024-07-06 13:23 | NUR ---
Patient here, unhappy patient in room q 1hour without visit. I let her know I watched her get here and utilized that to run to another patient emergency but had previously been in and hes been actively cared for. In fact both therapies had just finished right before her arrival as well. I described all we'd done so far and what he'd eaten. Mark. also working very hard to keep him at his best.
--- NOTE | 2024-07-06 17:01 | NUR ---
SHIFT SUMMARY PT PLEASANT AND COOPERATIVE WITH CARE THOUGH AXO X0-1. SLEEPING EASILY THROUGHOUT THE DAY. UP TO THE RECLINER FOR THE SHIFT. PT MOVED FROM 311 TO 324, PT'S SPOUSE NOTIFIED OF THE MOVE. IV IN LEFT WRIST BECAME PAINFUL TO PT AND WAS NOT PATENT SO WAS PULLED. PT TO HAVE CT ONCE IV LINE REESTABLISHED. BED IN LOW POSITION, CALL LIGHT WITHIN REACH. VSS. CHAIR ALARM AND BED ALARM ON. PT'S SPOUSE STATED THAT SHE "EXPECTS THE DOCTOR TO CALL DAILY WITH UPDATES." DR PRADO NOTIFIED.
[2024-07-06 17:02] VITALS: BP 135/70
[2024-07-06 19:03] VITALS: BP 98/59
--- NOTE | 2024-07-06 20:49 | NUR ---
Patient fell out of bed on his knees, was able to get up himself back onto bed. No injuries were found, bed alarm was on bed.
--- NOTE | 2024-07-06 22:28 | NUR ---
SPOKE WITH DELFINO HUDSON PT'S FALL AT 2034, ATTEMPTED TO CALL EARLIER BUT HE WAS IN AN EMERGENCY AND UNABLE TO TALK. INFORMED R/T TO DETAILS OF WHAT HAPPENED DURING FALL, PT IS NOW IN A CARMITA FOR PT'S OWN SAFETY. PRIMARY RN AWARE.
[2024-07-06 22:40] LABS: Potassium, Blood 3.7 mmol/L (3.5-5.5)
--- NOTE | 2024-07-06 23:11 | NUR ---
NURSE NOTE CONTACTED DR QUILES ABOUT LAB RESULTS. NO NEW ORDERS AT THIS TIME.
[2024-07-07 03:27] VITALS: BP 128/83
--- NOTE | 2024-07-07 05:56 | NUR ---
SHIFT SUMMARY PATIENT IS ALERT AND ORIENTED TO SELF ONLY. PATIENT HAD CT SCAN THIS EVENING. PATIENT SLID OUT OF BED WITH NO INJURIES AND WITH BED ALARM ON. PATIENT HAS HAD A CARMITA VEST PLACED ON FOR SAFETY. PATIENT HAS BEEN SLEEPING MOST OF SHIFT AFTER INCIDENT. PATIENT HAS HAD NO COMPLAINTS OF PAIN, NAUSEA, SOB OR VOMITTING THIS SHIFT. VITAL SIGNS REVIEWED. DR QUILES WAS NOTIFIED OF LAB RESULTS IN PM.
[2024-07-07 06:34] LABS: BASOPHILS ABSOLUTE AUTO 0.02 K/mm3 (0.00-0.23); BASOPHILS PERCENT AUTO 0 % (0-2); EOSINOPHILS ABSOLUTE AUTO 0.04 K/mm3 (0.00-0.68); EOSINOPHILS PERCENT AUTO 1 % (0-6); Hematocrit 31.5 % (37.0-53.0); Hemoglobin 10.8 g/dL (13.5-17.5); IMMATURE GRAN ABSOLUTE AUTO 0.07 K/mm3 (0.00-0.10); IMMATURE GRAN PERCENT AUTO 1 % (0-1); LYMPHOCYTES ABSOLUTE AUTO 1.38 K/mm3 (0.84-5.20); LYMPHOCYTES PERCENT AUTO 18 % (21-46); MONOCYTES ABSOLUTE AUTO 0.53 K/mm3 (0.16-1.47); MONOCYTES PERCENT AUTO 7 % (4-13); Mean Corpuscular HGB 31.5 pg (26.0-34.0); Mean Corpuscular HGB Conc 34.3 g/dL (31.5-36.5); Mean Corpuscular Volume 92 fL (80-100); Mean Platelet Volume 11.1 fL (9.1-12.4); NEUTROPHILS PERCENT AUTO 73 % (41-73); Platelet Count 246 K/mm3 (150-400); RDW Coefficient Variation 13.3 % (11.7-14.2); Red Blood Cell Count 3.43 M/mm3 (4.30-5.90); White Blood Cell Count 7.64 K/mm3 (4.00-11.30)
[2024-07-07 06:54] LABS: Albumin, Blood 1.5 g/dL (3.4-5.0); Albumin/Globulin Ratio 0.3 (0.8-1.8); Bilirubin, Total 0.4 mg/dL (0.1-1.0); Bun/Creatinine Ratio 22.7 (12.0-20.0); Calcium, Blood 8.4 mg/dL (8.5-10.1); Creatinine, Blood 1.1 mg/dL (0.60-1.20); Globulin, Blood 4.5 g/dL (2.2-4.0); Magnesium, Blood 2.3 mg/dL (1.6-2.4); Potassium, Blood 3.5 mmol/L (3.5-5.5)
[2024-07-07 07:29] VITALS: BP 123/71
[2024-07-07 16:37] VITALS: BP 135/68
--- NOTE | 2024-07-07 17:32 | NUR ---
PHYSICIAN CONTACT CALLED DR QUILES WITH SODIUM RESULTS AT 1200, ORDERED SODIUM CHECK AT 1700. CALLED DR QUILES WITH SODIUM RESULTS AT 1730, NO NEW ORDERS, CONTINUE WITH LABS IN AM.
--- NOTE | 2024-07-07 18:11 | NUR ---
SHIFT SUMMARY PATIENT IN BED THIS SHIFT, FAMILY AT BEDSIDE MOST OF SHIFT. PATIENT CONTINUES TO REQUIRE POSY VEST FOR SAFETY. A/OX1, AT TIMES TO FAMILY. NONSENSICAL SPEECH PATTERNS. REQUIRES ASSISTANCE WITH MEALS, NO CHOKING EPISODES, DOES REQUIRE SOME VERBAL CUES FOR SWALLOWING AT TIMES. NOT ABLE TO MAKE NEEDS KNOWN. CALL LIGHT IN REACH, CARES ONGOING.
[2024-07-07 19:19] VITALS: BP 134/55
[2024-07-08 04:28] VITALS: BP 118/89
[2024-07-08 05:07] LABS: BASOPHILS ABSOLUTE AUTO 0.04 K/mm3 (0.00-0.23); BASOPHILS PERCENT AUTO 1 % (0-2); EOSINOPHILS ABSOLUTE AUTO 0.04 K/mm3 (0.00-0.68); EOSINOPHILS PERCENT AUTO 1 % (0-6); Hemoglobin 12.3 g/dL (13.5-17.5); IMMATURE GRAN ABSOLUTE AUTO 0.07 K/mm3 (0.00-0.10); IMMATURE GRAN PERCENT AUTO 1 % (0-1); LYMPHOCYTES ABSOLUTE AUTO 1.54 K/mm3 (0.84-5.20); LYMPHOCYTES PERCENT AUTO 18 % (21-46); MONOCYTES ABSOLUTE AUTO 0.52 K/mm3 (0.16-1.47); MONOCYTES PERCENT AUTO 6 % (4-13); Mean Corpuscular HGB 30.8 pg (26.0-34.0); Mean Corpuscular HGB Conc 33.2 g/dL (31.5-36.5); Mean Corpuscular Volume 93 fL (80-100); Mean Platelet Volume 11.1 fL (9.1-12.4); NEUTROPHILS ABSOLUTE AUTO 6.14 K/mm3 (1.96-9.15); NEUTROPHILS PERCENT AUTO 74 % (41-73); Platelet Count 297 K/mm3 (150-400); RDW Standard Deviation 44.3 fL (35.1-46.3); White Blood Cell Count 8.35 K/mm3 (4.00-11.30)
--- NOTE | 2024-07-08 05:09 | NUR ---
SHIFT SUMMARY PATIENT IS ALERT AND ORIENTED TIMES 1, NOT ON TELE. PATIENT IS FULL CODE AND PRESENTS WITH ALTERED MENTAL STATUS. PATIENT WAS NOT RECEPTIVE TO TREATMENT TODAY WHEN DOING BED CHANGE AND CLOTHING CHANGE. PATIENT HAS RENEWED ORDER FOR CARMITA RESTRAINTS. PATIENT HAS IV LEFT AC AND IS ON ROOM AIR. MEDICATIONS ARE CRUSHED WITH APPLESAUCE. PATIENT HAS NON PRODUCTIVE COUGH AND SPUTUM CULTURE ORDERED. BED AT LOW POSITION, RAILS TIMES 2, CALL LIGHT WITHIN REACH.
[2024-07-08 05:39] LABS: Albumin, Blood 1.7 g/dL (3.4-5.0); Albumin/Globulin Ratio 0.3 (0.8-1.8); Bilirubin, Total 0.5 mg/dL (0.1-1.0); Calcium, Blood 8.4 mg/dL (8.5-10.1); Globulin, Blood 5.1 g/dL (2.2-4.0); Magnesium, Blood 2.1 mg/dL (1.6-2.4); Phosphorus, Blood 2.8 mg/dL (2.5-4.9); Potassium, Blood 3.8 mmol/L (3.5-5.5); Total Protein, Blood 6.8 g/dL (6.4-8.2)
[2024-07-08 08:10] VITALS: BP 137/71
[2024-07-08 08:16] VITALS: BP 137/71
--- NOTE | 2024-07-08 15:28 | NUR ---
CONTACTED DR QUILES WITH 1300 SODIUM DRAW RESULTS, NO NEW ORDERS. CONTACTED DR PRADO REGARDING LOSS OF IV ACCESS, STATED OKAY TO LEAVE OUT AND WILL SWITCH TO PO ABX, NOTIFIED DOC AND STUDENTS OF REDDENED PENIS, STATED THEY WOULD ORDER ANTIFUNGAL CREAM.
[2024-07-08 16:44] VITALS: BP 98/75
--- NOTE | 2024-07-08 17:41 | NUR ---
CONTACTED DR JAY REGARDING NEEDING ABX COVERAGE SWITCHED TO PO. OKAYED FOR AUGMENTIN BID FOR NOW.
--- NOTE | 2024-07-08 18:00 | NUR ---
SHIFT SUMMARY PATIENT IN BED THIS SHIFT, ATTEMPTED DANGLE THIS AM, PATIENT APPEARING FEARFUL, NOT ABLE TO TAKE DIRECTION SAFELY, RIGID BODY MOVEMENTS. CONTINUES TO REQUIRE POSY VEST FOR SAFETY, NOT ABLE TO ADHERE TO SAFETY INSTRUCTIONS. A/O TO SELF AND SOMETIMES FAMILY. DID RECITE ACCURATE BIRTHDAY THIS AM. BM THIS SHIFT, INCONTINENT. BLANCHABLE RED COCCYX, CLEANED AND MEPILEX PLACED. REQUIRES FEED ASSIST, EATING AND DRINKING ADEQUATE AMOUNTS. NOT ABLE TO MAKE NEEDS KNOWN. CALL LIGHT IN REACH, BED ALARM ON, FAMILY IN ROOM MOST OF SHIFT. CARES ONGOING.
[2024-07-08 20:22] VITALS: BP 135/76
[2024-07-08] MEDS ORDERED: Amoxicillin/Clavulanate K 875 MG Tab PO SCH (21:00)
[2024-07-09 04:50] LABS: BASOPHILS ABSOLUTE AUTO 0.03 K/mm3 (0.00-0.23); BASOPHILS PERCENT AUTO 0 % (0-2); EOSINOPHILS ABSOLUTE AUTO 0.04 K/mm3 (0.00-0.68); EOSINOPHILS PERCENT AUTO 1 % (0-6); Hematocrit 34.6 % (37.0-53.0); Hemoglobin 11.4 g/dL (13.5-17.5); IMMATURE GRAN ABSOLUTE AUTO 0.07 K/mm3 (0.00-0.10); IMMATURE GRAN PERCENT AUTO 1 % (0-1); LYMPHOCYTES ABSOLUTE AUTO 1.65 K/mm3 (0.84-5.20); LYMPHOCYTES PERCENT AUTO 21 % (21-46); MONOCYTES PERCENT AUTO 6 % (4-13); Mean Corpuscular HGB 30.5 pg (26.0-34.0); Mean Corpuscular HGB Conc 32.9 g/dL (31.5-36.5); Mean Corpuscular Volume 93 fL (80-100); Mean Platelet Volume 10.8 fL (9.1-12.4); NEUTROPHILS ABSOLUTE AUTO 5.47 K/mm3 (1.96-9.15); NEUTROPHILS PERCENT AUTO 71 % (41-73); Platelet Count 317 K/mm3 (150-400); RDW Coefficient Variation 13.1 % (11.7-14.2); RDW Standard Deviation 44.6 fL (35.1-46.3); Red Blood Cell Count 3.74 M/mm3 (4.30-5.90); White Blood Cell Count 7.76 K/mm3 (4.00-11.30)
[2024-07-09 05:26] LABS: Magnesium, Blood 2.2 mg/dL (1.6-2.4)
[2024-07-09 05:27] LABS: Albumin, Blood 1.7 g/dL (3.4-5.0); Albumin/Globulin Ratio 0.4 (0.8-1.8); Bilirubin, Total 0.4 mg/dL (0.1-1.0); Bun/Creatinine Ratio 22.9 (12.0-20.0); Calcium, Blood 8.6 mg/dL (8.5-10.1); Creatinine, Blood 0.92 mg/dL (0.60-1.20); Globulin, Blood 4.8 g/dL (2.2-4.0); Phosphorus, Blood 2.9 mg/dL (2.5-4.9); Potassium, Blood 3.7 mmol/L (3.5-5.5); Total Protein, Blood 6.5 g/dL (6.4-8.2)
--- NOTE | 2024-07-09 05:27 | NUR ---
SHIFT SUMMARY PATIENT IS ALERT AND ORIENTED TIMES 1, NOT ON TELE. PATIENT IS FULL CODE AND PRESENTS WITH ALTERED MENTAL STATUS. PATIENT WAS NOT RECEPTIVE TO TREATMENT TODAY. GRABBING FEMALE STAFF WHILE GETTING BED CHANGE AND CLOTHING CHANGED. PATIENT HAS RENEWED ORDER FOR CARMITA RESTRAINTS. PATIENT HAD IV LEFT AC DC D PER . IS ON ROOM AIR. MEDICATIONS ARE CRUSHED WITH APPLESAUCE. PATIENT BUT HAS NOT LET NOC NURSE GIVE THEM TO HIM AND AT ONE POINT KNOCKED THE CONTAINER OUT OF NURSE HAND. HAS NON PRODUCTIVE COUGH AND SPUTUM CULTURE ORDERED BUT NOT ABLE TO COLLECT. BED AT LOW POSITION, RAILS TIMES 2, CALL LIGHT WITHIN REACH.
[2024-07-09 07:06] VITALS: BP 132/64
[2024-07-09] MEDS ORDERED: QUEtiapine Fumarate 25 MG Tab PO PRN (13:55)
[2024-07-09 16:06] VITALS: BP 114/69
--- NOTE | 2024-07-09 17:15 | NUR ---
Met with pt's Pauline today at bedside. We talked in depth about the differences between Home Health Care and Hospice. Pt's states she has been feeling anxious and pressured when trying to make decisions regarding her 's health. I gently reassured her there is still time, and reminded her to speak with her daughter and son in law whom she trusts very much, she states. The patient is not following commands, and has been placed on a pureed and thickened diet for now due to failing barium swallow this am. Pt's is also trying to decide between taking the patient home and placing him in a termite treater facility. Plan to meet again tomorrow, reassess pt's overall condition and have further discussion surrounding these issues.
--- NOTE | 2024-07-09 18:16 | NUR ---
PT STILL NOT REDIRECTABLE. IS MOSTLY PLEASANT BUT CONFUSED. DENIES PAIN. CONTINUES IN POSY VEST FOR SAFETY. AT BEDSIDE MOST OF DAY. OTHER FAMILY/FRIENDS IN TO VISIT ALSO. DR DID BEGIN SEROQUEL FOR THIS BLACK. PT DID TOLERATE HIS AM MEDS THIS DAY WITH CRUSHED WITH JAMARI PUTTING. NEEDS LOTS OF DIRECTION. NO OTHER NEW CONCERNS NOTED. BED IN LOW POSITOIN, CALL LITE INB REACH, BED ALARM ON FOR SAFETY
[2024-07-09 19:27] VITALS: BP 145/69
[2024-07-10] MEDS ORDERED: Miconazole Nitrate 2% 85 GM PWD TOP SCH (01:30)
--- NOTE | 2024-07-10 04:54 | NUR ---
SUMMARY- PT REMAINS CONFUSED AND UNCOOPERATIVE. PT CONTINUES TO BE IN A CARMITA VEST. PT DID TAKE PM MEDS THIS SHIFT. PT DOES KICK OUT AT TIMES. PT RESPONDED WELL TO PRN SEROQUEL. PT HAS BEEN SLEEPING OFF AND ON. PT REPOSITIONED AND BRIEF CHANGED NEEDED. PT SPEAKS IN WORD SALAD AND DOES NOT FOLLOW DIRECTIONS. CALL LIGHT IN REACH AND BED ALARM ON.
[2024-07-10 05:08] LABS: BASOPHILS ABSOLUTE AUTO 0.04 K/mm3 (0.00-0.23); BASOPHILS PERCENT AUTO 1 % (0-2); EOSINOPHILS ABSOLUTE AUTO 0.04 K/mm3 (0.00-0.68); EOSINOPHILS PERCENT AUTO 1 % (0-6); Hematocrit 34.6 % (37.0-53.0); Hemoglobin 11.3 g/dL (13.5-17.5); IMMATURE GRAN ABSOLUTE AUTO 0.06 K/mm3 (0.00-0.10); IMMATURE GRAN PERCENT AUTO 1 % (0-1); LYMPHOCYTES ABSOLUTE AUTO 1.96 K/mm3 (0.84-5.20); LYMPHOCYTES PERCENT AUTO 26 % (21-46); MONOCYTES ABSOLUTE AUTO 0.48 K/mm3 (0.16-1.47); MONOCYTES PERCENT AUTO 7 % (4-13); Mean Corpuscular HGB 30.2 pg (26.0-34.0); Mean Corpuscular HGB Conc 32.7 g/dL (31.5-36.5); Mean Corpuscular Volume 93 fL (80-100); Mean Platelet Volume 10.5 fL (9.1-12.4); NEUTROPHILS ABSOLUTE AUTO 4.86 K/mm3 (1.96-9.15); NEUTROPHILS PERCENT AUTO 65 % (41-73); Platelet Count 359 K/mm3 (150-400); RDW Coefficient Variation 13.2 % (11.7-14.2); RDW Standard Deviation 44.8 fL (35.1-46.3); Red Blood Cell Count 3.74 M/mm3 (4.30-5.90); White Blood Cell Count 7.44 K/mm3 (4.00-11.30)
[2024-07-10 06:14] LABS: Albumin, Blood 1.8 g/dL (3.4-5.0); Albumin/Globulin Ratio 0.4 (0.8-1.8); Bilirubin, Total 0.3 mg/dL (0.1-1.0); Bun/Creatinine Ratio 24.1 (12.0-20.0); Calcium, Blood 8.5 mg/dL (8.5-10.1); Creatinine, Blood 0.87 mg/dL (0.60-1.20); Globulin, Blood 4.8 g/dL (2.2-4.0); Potassium, Blood 3.7 mmol/L (3.5-5.5); Total Protein, Blood 6.6 g/dL (6.4-8.2)
[2024-07-10 07:27] VITALS: BP 147/67
[2024-07-10 16:02] VITALS: BP 115/78
--- NOTE | 2024-07-10 17:49 | NUR ---
PATIENT IS ALERT, ORIENTED TO SELF, PLEASANT, UNABLE TO FOLLOW COMMANDS. PATIENTS SPEECH IS MUMBLED, WORD SALAD, AND UNABLE TO ANSWER QUESTIONS APPROPRIATELY. PATIENT IS A SBAX1 WITH GAIT BELT. BED ALARM IS ON FOR SAFETY. PATIENT IS INCONTINENT, ATTENDS IN PLACE. BED IS IN LOW POSITION AND CALL LIGHT IS WITHIN REACH.
[2024-07-10 19:30] VITALS: BP 101/90
--- NOTE | 2024-07-11 04:33 | NUR ---
SUMMARY- PT TOOK PM MEDS THIS SHIFT. PT HAS BEEN RESTING QUIETLY WITHOUT ISSUE THIS SHIFT. PT DID NOT NEED PRN SEROQUEL THIS SHIFT. PT REPOSITIONED TOLERATED. BRIEF CHANGED NEEDED. PT BED ALARM IS ON AND CALL LIGHT IN REACH.
[2024-07-11 05:21] VITALS: BP 118/69
[2024-07-11 06:06] LABS: Albumin, Blood 1.8 g/dL (3.4-5.0); Albumin/Globulin Ratio 0.4 (0.8-1.8); Bilirubin, Total 0.3 mg/dL (0.1-1.0); Bun/Creatinine Ratio 22.2 (12.0-20.0); Calcium, Blood 8.6 mg/dL (8.5-10.1); Creatinine, Blood 0.9 mg/dL (0.60-1.20); Globulin, Blood 4.8 g/dL (2.2-4.0); Total Protein, Blood 6.6 g/dL (6.4-8.2)
[2024-07-11 07:44] VITALS: BP 122/71
[2024-07-11 15:10] VITALS: BP 122/68
--- NOTE | 2024-07-11 16:10 | NUR ---
NO ACUTE CHANGES, PT IS ALERT AND ORIENTED TO SELF AND SPOUSE. CONFUSED, IS REDIRECTABLE. FOLLOWS COMMANDS APPROPRIATELY ONCE THE COMMAND IS UNDERSTOOD. 1 PERSON ASSIST WITH GAIT BELT. PT WORKED WITH PT AND SPOUSE WITH GOOD RESULTS. PT FED HIMSELF LUNCH TODAY. PLAN TO DISCHARGE HOME WITH HOME HEALTH TOMORROW.
[2024-07-11 19:52] VITALS: BP 134/76
[2024-07-12 03:52] VITALS: BP 146/74
[2024-07-12 05:46] LABS: BASOPHILS ABSOLUTE AUTO 0.04 K/mm3 (0.00-0.23); BASOPHILS PERCENT AUTO 1 % (0-2); EOSINOPHILS ABSOLUTE AUTO 0.05 K/mm3 (0.00-0.68); EOSINOPHILS PERCENT AUTO 1 % (0-6); Hematocrit 34.8 % (37.0-53.0); Hemoglobin 11.4 g/dL (13.5-17.5); IMMATURE GRAN ABSOLUTE AUTO 0.07 K/mm3 (0.00-0.10); IMMATURE GRAN PERCENT AUTO 1 % (0-1); LYMPHOCYTES ABSOLUTE AUTO 1.97 K/mm3 (0.84-5.20); LYMPHOCYTES PERCENT AUTO 23 % (21-46); MONOCYTES ABSOLUTE AUTO 0.58 K/mm3 (0.16-1.47); MONOCYTES PERCENT AUTO 7 % (4-13); Mean Corpuscular HGB 31.1 pg (26.0-34.0); Mean Corpuscular HGB Conc 32.8 g/dL (31.5-36.5); Mean Corpuscular Volume 95 fL (80-100); NEUTROPHILS ABSOLUTE AUTO 5.76 K/mm3 (1.96-9.15); NEUTROPHILS PERCENT AUTO 68 % (41-73); Platelet Count 335 K/mm3 (150-400); RDW Standard Deviation 45.1 fL (35.1-46.3); Red Blood Cell Count 3.67 M/mm3 (4.30-5.90); White Blood Cell Count 8.47 K/mm3 (4.00-11.30)
[2024-07-12 06:06] LABS: Albumin/Globulin Ratio 0.4 (0.8-1.8); Bilirubin, Total 0.4 mg/dL (0.1-1.0); Bun/Creatinine Ratio 20.5 (12.0-20.0); Calcium, Blood 8.8 mg/dL (8.5-10.1); Creatinine, Blood 0.97 mg/dL (0.60-1.20); Globulin, Blood 4.6 g/dL (2.2-4.0); Total Protein, Blood 6.6 g/dL (6.4-8.2)
--- NOTE | 2024-07-12 06:47 | NUR ---
SHIFT SUMMARY. PATIENT IS A&O TO SELF. PATIENT IS PLEASANTLY CONFUSED. PATIENT SLEPT WELL T/O NIGHT WITH RESPIRATIONS EQUAL AND UNLABORED. PATIENT UP THIS MORNING FOR A SHOWER. LINENS CHANGED. NO ACUTE CHANGES. BED IS LOCKED IN THE LOWEST POSITION WITH CALL LIGHT IN REACH. CARE IS ONGOING.
[2024-07-12 07:53] VITALS: BP 118/54
[2024-07-12] MEDS ORDERED: SEROQUEL25 MG PO (11:06)
[2024-07-12] MEDS ORDERED: AMOCLA875 PO (11:06)
[2024-07-12] MEDS ORDERED: QUEtiapine Fumarate 25 MG Tab PO ONE (11:45)
--- NOTE | 2024-07-12 13:23 | NUR ---
PT DISCHARGED HOME WITH HOME HEALTH. THIS RN SPENT APPROX 60 MIN DISCUSSING DISCHARGE INSTRUCTION AND SAFE AMBULATION PRACTICES WITH SPOUSE. PT IS ALERT AND ORIENTED TO SELF AND SPOUSE.
== END 2024-07-12 12:22 | disposition home health service (06) | DRG 871 ==
LOC: ER 18:07 → MEDS 22:11 → ERHOLD 22:11 → MEDS 23:21 → ENPENDDIS 07-12 11:02 → MEDS 07-12 12:22
PROVIDERS: Emergency Medicine; Family Medicine; Hospitalist; Internal Medicine; Internal Medicine Nephrology; Physician Assistant; ADMIT Internal Medicine
PROC: 009U3ZX Drainage of Spinal Canal, Percutaneous Approach, Diagnostic (ICD-10-PCS; principal; 2024-06-28)
PROC: 3E03329 Introduction of Other Anti-infective into Peripheral Vein, Percutaneous Approach (ICD-10-PCS; 2024-06-28)
DX: A41.9 Sepsis, unspecified organism (principal); G92.8 Other toxic encephalopathy; J18.9 Pneumonia, unspecified organism; E87.0 Hyperosmolality and hypernatremia; N17.9 Acute kidney failure, unspecified; E87.20 Acidosis, unspecified; G30.9 Alzheimer's disease, unspecified; F02.80 Dementia in other diseases classified elsewhere, unspecified severity, without behavioral disturbance, psychotic disturbance, mood disturbance, and anxiety; N40.0 Benign prostatic hyperplasia without lower urinary tract symptoms; N18.9 Chronic kidney disease, unspecified; R65.20 Severe sepsis without septic shock; E88.09 Other disorders of plasma-protein metabolism, not elsewhere classified; D63.1 Anemia in chronic kidney disease; E83.39 Other disorders of phosphorus metabolism; E87.6 Hypokalemia; W18.39XA Other fall on same level, initial encounter
CPT/HCPCS: 0241U; 36415; 51701; 62270; 70450; 71045; 71046; 71260; 74230; 76705; 76770; 80048; 80053; 80069; 80320; 81001; 82140; 82945; 83605; 83735; 83880; 83935; 84100; 84132; 84145; 84157; 84295; 84439; 84443; 84484; 85014; 85018; 85025; 86403; 87040; 87070; 87086; 87205; 87252; 87449; 87483; 89051; 92526; 92610; 92611; 93005; 93010; 96365-59; 96375-59; 97112; 97116; 97162; 97165; 97530; 97535; 99285-25; A9270; J0456; J0696; J1650; J1956; J2543; J3370; J3480; J7030; J7042; J7050; J7060; J7070; Q9967

== ENCOUNTER 2024-07-15 23:11 | Emergency (ER) | payer MEDICARE ==
[~2024-07-15] VITALS: Ht 177.8 cm; Wt 68.0 kg
[~2024-07-15 23:11] MED LIST changes: +AMOCLA875 PO; +DONEPEZIL HCL10 MG PO; +MEMANTINE HCL PO; +MIRT15 PO; +SEROQUEL25 MG PO
[2024-07-16 01:29] LABS: BASOPHILS ABSOLUTE AUTO 0.05 K/mm3 (0.00-0.23); BASOPHILS PERCENT AUTO 1 % (0-2); EOSINOPHILS PERCENT AUTO 2 % (0-6); Hematocrit 40.5 % (37.0-53.0); Hemoglobin 12.6 g/dL (13.5-17.5); IMMATURE GRAN ABSOLUTE AUTO 0.07 K/mm3 (0.00-0.10); IMMATURE GRAN PERCENT AUTO 1 % (0-1); LYMPHOCYTES ABSOLUTE AUTO 2.12 K/mm3 (0.84-5.20); LYMPHOCYTES PERCENT AUTO 26 % (21-46); MONOCYTES ABSOLUTE AUTO 0.57 K/mm3 (0.16-1.47); MONOCYTES PERCENT AUTO 7 % (4-13); Mean Corpuscular HGB 31.4 pg (26.0-34.0); Mean Corpuscular HGB Conc 31.1 g/dL (31.5-36.5); Mean Corpuscular Volume 101 fL (80-100); Mean Platelet Volume 9.8 fL (9.1-12.4); NEUTROPHILS ABSOLUTE AUTO 5.16 K/mm3 (1.96-9.15); NEUTROPHILS PERCENT AUTO 63 % (41-73); Platelet Count 270 K/mm3 (150-400); RDW Coefficient Variation 13.1 % (11.7-14.2); RDW Standard Deviation 49.1 fL (35.1-46.3); Red Blood Cell Count 4.01 M/mm3 (4.30-5.90); White Blood Cell Count 8.17 K/mm3 (4.00-11.30)
[2024-07-16 01:51] LABS: Albumin, Blood 2.4 g/dL (3.4-5.0); Albumin/Globulin Ratio 0.5 (0.8-1.8); Bilirubin, Total 0.3 mg/dL (0.1-1.0); Bun/Creatinine Ratio 19.5 (12.0-20.0); Calcium, Blood 8.8 mg/dL (8.5-10.1); Creatinine, Blood 0.92 mg/dL (0.60-1.20); Globulin, Blood 4.7 g/dL (2.2-4.0); Potassium, Blood 4.2 mmol/L (3.5-5.5); Total Protein, Blood 7.1 g/dL (6.4-8.2)
[2024-07-16] MEDS ORDERED: QUEtiapine Fumarate 25 MG Tab PO ONE (06:30)
[2024-07-16 09:46] LABS: Source, Urine Clean Catch
[2024-07-16 09:55] LABS: Bilirubin, Urine Neg (Neg); Blood, Urine Neg (Neg); Glucose Qualitative, Urine Neg (Neg); Ketones, Urine Neg (Neg); Leukocyte Esterase, Urine Neg (Neg); Nitrite, Urine Neg (Neg); Protein, Urine Neg (Neg); Specific Gravity, Urine 1.025 (1.003-1.022); Urobilinogen, Urine NORM (Normal)
[2024-07-16 10:03] LABS: Appearance, Urine Hazy (Clear); Bacteria Rare /hpf; Color, Urine Yellow (P-Yellow); Red Blood Cells, Urine 0-2 /hpf (0-2); Squamous Epithelial Cells Rare /hpf (Few); White Blood Cells, Urine 0-2 /hpf (0-5)
[2024-07-16 10:04] LABS: Amorphous Light (0-Heavy); Calcium Oxalate Crystals Few /hpf; Hyaline Casts 0-2 /lpf (0-2)
[2024-07-16 12:13] VITALS: BP 110/76
== END 2024-07-16 12:13 | disposition home or self-care (01) ==
LOC: ER 23:11
PROVIDERS: Emergency Medicine
DX: G30.9 Alzheimer's disease, unspecified (principal); F02.811 Dementia in other diseases classified elsewhere, unspecified severity, with agitation; F05 Delirium due to known physiological condition; J18.9 Pneumonia, unspecified organism; N40.0 Benign prostatic hyperplasia without lower urinary tract symptoms; Z79.899 Other long term (current) drug therapy
CPT/HCPCS: 71045; 80053; 81001; 85025; 99285-25; A9270

== ENCOUNTER → 2024-07-19 | Outpatient (CLI) | payer MEDICARE ==
[2024-07-19 15:49] LABS: Source, Urine Voided
[2024-07-19 17:05] LABS: Bilirubin, Urine Neg (Neg); Blood, Urine Neg (Neg); Glucose Qualitative, Urine Neg (Neg); Ketones, Urine Neg (Neg); Leukocyte Esterase, Urine Neg (Neg); Nitrite, Urine Neg (Neg); Protein, Urine Neg (Neg); Urobilinogen, Urine NORM (Normal)
[2024-07-19 17:13] LABS: Appearance, Urine Clear (Clear); Color, Urine Pale Yellow (P-Yellow)
== END | disposition home or self-care (01) ==
LOC: LAB 15:48 → LAB SHORT 15:48
PROVIDERS: Internal Medicine
DX: R31.9 Hematuria, unspecified (principal)
CPT/HCPCS: 81003

== ENCOUNTER → 2025-06-14 | Outpatient (CLI) | payer MEDICARE ==
[2025-06-14 10:02] LABS: Source, Urine Clean Catch
[2025-06-14 11:02] LABS: Bilirubin, Urine Neg (Neg); Color, Urine Yellow (P-Yellow); Glucose Qualitative, Urine Neg (Neg); Ketones, Urine Neg (Neg); Leukocyte Esterase, Urine Neg (Neg); Protein, Urine Neg (Neg); Specific Gravity, Urine 1.015 (1.003-1.022); Urobilinogen, Urine NORM (Normal)
== END | disposition home or self-care (01) ==
LOC: LAB 10:00 → LAB SHORT 10:00
PROVIDERS: Internal Medicine
DX: R30.0 Dysuria (principal)
CPT/HCPCS: 81003

== ENCOUNTER → 2025-07-02 | Outpatient (CLI) | payer MEDICARE ==
[2025-07-02 19:25] LABS: Bilirubin, Urine Neg (Neg); Color, Urine Yellow (P-Yellow); Glucose Qualitative, Urine Neg (Neg); Ketones, Urine Neg (Neg); Leukocyte Esterase, Urine Neg (Neg); Protein, Urine Neg (Neg); Specific Gravity, Urine 1.010 (1.003-1.022); Urobilinogen, Urine NORM (Normal)
[2025-07-02 19:46] LABS: Red Blood Cells, Urine 0-2 /hpf (0-2); White Blood Cells, Urine 0-2 /hpf (0-5)
== END ==
LOC: LAB SHORT 15:12 → LAB 15:12
DX: N39.0 Urinary tract infection, site not specified (principal)
CPT/HCPCS: 81001